=== PATIENT | male | born 1965 | race Caucasian/White ===

== ENCOUNTER 2016-12-27 17:11 | Observation (INO) | payer OTHER ==
--- NOTE | ~2016-12-27 | HP ---
History And Physical [address] [place]. [address] NAME: JOSE CHAVEZ : 63 STATUS : DIS Alexx PAT#: [id number] AGE: 51 ADM/REG DATE : 12/27/16 MR#: [id number] REPORT SERV DATE: 12/28/16 DICTATED BY: LEVAR CARO JR. DATE: 12/28/16 REPORT STATUS : Draft TRANSCRIBED BY: PAM DATE: 12/28/16 DATE OF ADMISSION: 12/27/2016 CHIEF COMPLAINT: Abdominal pain. HISTORY OF PRESENT ILLNESS: This is a 51-year-old male. He presented to [facility] emergency department with complaints of right upper quadrant pain. He of note had undergone a CT- guided and needle biopsy of his liver recently as a BAL study in which he is also receiving treatment, this is done by Dr. Clay. He came to the ER because of the severe pain and does have a history of costochondritis. He was evaluated where he did have some tenderness in the right upper quadrant. He did have a CT scan, which was remarkable for a subcapsular fluid collection in the liver. There is no free peritoneal fluid or hematoma. His appendix was noted to be somewhat prominent at the upper limits of normal, but no inflammatory changes. He was observed overnight. He has continued pain in the right costal margin, but no right lower quadrant pain. No nausea. Of note, his white count was also slightly elevated. PAST MEDICAL HISTORY: Remarkable also for hypertension, sleep apnea, headache, reflux disease, thyroid disease. MEDICATION: List were reviewed. SOCIAL HISTORY: He is . Does not smoke. He drinks alcohol. FAMILY HISTORY: Negative. REVIEW OF SYSTEMS: GENERAL: No fever or chills. HEENT: Negative. NEURO: Negative. SKIN: Negative. RESPIRATORY: Cough and chest pain on the right. GI: Otherwise negative. : Negative. MUSCULOSKELETAL: Myalgias, arthralgias. ENDOCRINE: Negative. HEMATOLOGIC: Negative. IMMUNOLOGIC: Negative. PSYCHIATRIC: Negative. PHYSICAL EXAMINATION: GENERAL: A healthy-appearing male, who is somewhat uncomfortable. HEAD AND NECK: Pupils are equal and round. There were no icteric changes. Mucous membranes are dry. NECK: Supple. LUNGS: Clear bilaterally. History And Physical [address] [place]. [address] NAME: JOSE CHAVEZ : 63 STATUS : DIS Alexx PAT#: [id number] AGE: 51 ADM/REG DATE : 12/27/16 MR#: [id number] REPORT SERV DATE: 12/28/16 DICTATED BY: LEVAR CARO JR. DATE: 12/28/16 REPORT STATUS : Draft TRANSCRIBED BY: PAM DATE: 12/28/16 CARDIOVASCULAR: Normal S1, S2 without murmur. ABDOMEN: Tender in the right upper quadrant along the costal margin. He has no peritoneal signs. EXTREMITIES: No clubbing, cyanosis, or edema. NEUROLOGIC: Alert and oriented. No focal findings. Appropriate affect. DIAGNOSTIC DATA: CT images were reviewed. Per the appendix is normal in size and there is no inflammation. There is subcapsular fluid collection along the costal margin presumably secondary to liver biopsy. IMPRESSION: Pain after liver biopsy. PLAN: Discussed findings with the patient. No surgical intervention is indicated. We will treat with analgesics. We will give IV Toradol and sent home with oxycodone. He will follow up with Dr. Clay and Dr. Bernstein. MIKE/PAM Levar Caro Jr., M.D. / [id number] CC: Elio Millard Jr., D.O. F.A.C.P.
[~2016-12-27 17:11] MED LIST: ACTOS15 PO; ATEN25 PO; AUG875 PO; COQ10100 MG OR; GINGER; GLUCPH PO; HCTZ25B PO; HYDROCHLOROT25 MG PO; KAPIDEX60 MG PO; MAX25 PO; MCZ25 PO; PRILO PO; SURBEX-T1 TAB PO; SYN125 PO; V180SR PO; VITAMIN D31000 UNIT PO; VITE PO; ZYRTEC ALLGY10 MG PO
[2016-12-27 19:23] LABS: BASOPHILS 0.2 %; BASOPHILS ABSOLUTE 0.03 10/3/uL (0.0-0.16); EOSINOPHILS 1.1 %; EOSINOPHILS ABSOLUTE 0.16 10/3/uL (0.0-0.53); ER CBC TAT 0 Hrs 03 Mins; HEMATOCRIT 45.3 % (40.0-51.0); HEMOGLOBIN 15.4 g/dL (13.6-17.8); IMMATURE GRANULOCYTES 0.5 %; IMMATURE GRANULOCYTES ABSOLUTE 0.07 10/3/uL (0.0-0.11); LYMPHOCYTES 17.2 %; LYMPHOCYTES ABSOLUTE 2.48 10/3/uL (0.67-4.30); MEAN CORPUSCULAR VOLUME 88.1 fL (80-100); MEAN PLATELET VOLUME 12.3 fL (9.2-13.0); MONOCYTES 6.5 %; MONOCYTES ABSOLUTE 0.94 10/3/uL (0.21-1.20); NEUTROPHILS 74.5 %; NEUTROPHILS ABSOLUTE 10.73 10/3/uL (2.02-8.40); PLATELET COUNT 176 10/3/uL (150-400); RBC DISTRIBUTION WIDTH 11.9 % (12.0-16.0); RED CELL COUNT 5.14 10/6/uL (4.7-6.1); WHITE BLOOD CELLS 14.4 10/3/uL (4.5-10.5)
[2016-12-27 19:24] LABS: MANUAL DIFF NO %
[2016-12-27 19:30] LABS: INTERNATIONAL NORMAL RATI 1.1 UNITS (-); PARTIAL THROMBO TIME 30.3 SEC (22.5-37.2); PROTIME (NOT ORD) 14.3 SEC (12.0-14.5)
[2016-12-27 19:43] LABS: ALBUMIN 3.9 G/DL (3.5-5.0); BUN (BLOOD UREA NITROGEN) 12 MG/DL (6-23); CALCIUM, SERUM 9.2 MG/DL (8.5-10.4); CHLORIDE, SERUM 104 MMOL/L (96-112); CO2 (CARBON DIOXIDE) 30 MMOL/L (24-34); CREATININE 1.03 MG/DL (0.70-1.30); GFR AFRICAN AMERICAN 96 ML/MIN (>=60); GFR NON AFRICAN AMERICAN 83 ML/MIN (>=60); GLOBULIN 3.9 G/DL (2.5-4.1); POTASSIUM, SERUM 4.1 MMOL/L (3.5-5.3); SGOT(AST) 40 U/L (5-40); SGPT(ALT) 73 U/L (5-65); SODIUM, SERUM 139 MMOL/L (135-148); TOTAL BILIRUBIN 0.6 MG/DL (0-1.2); TOTAL PROTEIN 7.8 G/DL (6.0-8.5)
[2016-12-27 19:44] LABS: ALKALINE PHOSPHATASE 164 U/L (45-117); GLUCOSE, SERUM 103 MG/DL (60-99)
[2016-12-27 20:19] LABS: ASCORBIC ACID (UR NOT ORDER) NEG (NEG); BILIRUBIN, URINE NEGATIVE (NEG); ER URINALYSIS TAT 0 Hrs 11 Mins; KETONE, URINE TRACE MG/DL (NEG); LEUKOCYTE ESTERASE(NOT OR NEG (NEG); NITRITE (URINE) NEG (NEG); WBC (NOT ORDERED) (RFLEX) 1 (0-5)
[2016-12-27] MEDS ORDERED: EPIPEN0.3 IM (22:53)
[2016-12-27] MEDS ORDERED: BENTYL10 PO (22:54)
[2016-12-27] MEDS ORDERED: NATURE THROID PO (22:55)
[2016-12-27] MEDS ORDERED: KAPIDEX60 MG PO (22:55)
[2016-12-27] MEDS ORDERED: CALAN SR180 MG PO (22:56)
[2016-12-27] MEDS ORDERED: VITAMIN B-12 PO (22:58)
[2016-12-27] MEDS ORDERED: VITE PO (22:58)
[2016-12-27] MEDS ORDERED: CO Q-10 PO (22:58)
[2016-12-27] MEDS ORDERED: ZYRTEC ALLGY10 MG PO (22:59)
[2016-12-27] MEDS ORDERED: MAXIMUM D3 PO (22:59)
[2016-12-27] MEDS ORDERED: ALLERGY SHOTS IM (23:00)
[2016-12-27] MEDS ORDERED: TUMS E-X750 M2 PO (23:01)
[2016-12-28 04:35] LABS: BASOPHILS 0.2 %; BASOPHILS ABSOLUTE 0.03 10/3/uL (0.0-0.16); EOSINOPHILS 1.1 %; EOSINOPHILS ABSOLUTE 0.16 10/3/uL (0.0-0.53); HEMATOCRIT 43.7 % (40.0-51.0); HEMOGLOBIN 14.5 g/dL (13.6-17.8); IMMATURE GRANULOCYTES 0.5 %; IMMATURE GRANULOCYTES ABSOLUTE 0.07 10/3/uL (0.0-0.11); LYMPHOCYTES 18.1 %; LYMPHOCYTES ABSOLUTE 2.62 10/3/uL (0.67-4.30); MEAN CORPUS HGB CONC 33.2 g/dL (32.0-36.0); MEAN CORPUSCULAR HEMOGLOB 29.7 pg (26.0-34.0); MEAN CORPUSCULAR VOLUME 89.4 fL (80-100); MEAN PLATELET VOLUME 12.8 fL (9.2-13.0); MONOCYTES 8.2 %; MONOCYTES ABSOLUTE 1.19 10/3/uL (0.21-1.20); NEUTROPHILS 71.9 %; NEUTROPHILS ABSOLUTE 10.39 10/3/uL (2.02-8.40); PLATELET COUNT 172 10/3/uL (150-400); RBC DISTRIBUTION WIDTH 12.1 % (12.0-16.0); RED CELL COUNT 4.89 10/6/uL (4.7-6.1); WHITE BLOOD CELLS 14.5 10/3/uL (4.5-10.5)
[2016-12-28 04:38] LABS: MANUAL DIFF NO %
[2016-12-28 04:43] LABS: ALBUMIN 3.4 G/DL (3.5-5.0); BUN (BLOOD UREA NITROGEN) 11 MG/DL (6-23); CALCIUM, SERUM 8.7 MG/DL (8.5-10.4); CHLORIDE, SERUM 103 MMOL/L (96-112); CO2 (CARBON DIOXIDE) 29 MMOL/L (24-34); GFR AFRICAN AMERICAN 89 ML/MIN (>=60); GFR NON AFRICAN AMERICAN 77 ML/MIN (>=60); GLOBULIN 3.3 G/DL (2.5-4.1); GLUCOSE, SERUM 119 MG/DL (60-99); POTASSIUM, SERUM 3.9 MMOL/L (3.5-5.3); SGOT(AST) 36 U/L (5-40); SGPT(ALT) 64 U/L (5-65); SODIUM, SERUM 138 MMOL/L (135-148); TOTAL BILIRUBIN 0.8 MG/DL (0-1.2); TOTAL PROTEIN 6.7 G/DL (6.0-8.5)
[2016-12-28 04:45] LABS: ALKALINE PHOSPHATASE 145 U/L (45-117)
[2016-12-28] MEDS ORDERED: OXYCOD PO (09:29)
== END 2016-12-28 10:47 | disposition home or self-care (01) ==
LOC: ER 17:11 → CDU1 20:00 → CDU2 12-28 00:31
PROVIDERS: Emergency Medicine; Specialist
DX: G89.18 Other acute postprocedural pain (principal); R10.11 Right upper quadrant pain; R07.9 Chest pain, unspecified; R05 Cough; R51 Headache; I10 Essential (primary) hypertension; G47.30 Sleep apnea, unspecified; K21.9 Gastro-esophageal reflux disease without esophagitis; M79.1 Myalgia; M25.50 Pain in unspecified joint; Z88.1 Allergy status to other antibiotic agents; Z79.899 Other long term (current) drug therapy; Z98.890 Other specified postprocedural states
CPT/HCPCS: 71010; 74177; 80053; 81001; 83690; 85025; 85610; 85730; 96374; 96375; 96376; 99285; A9270-GY; G0378; J0694; J1170; J1885; J2405; Q9967